=== PATIENT | male | born 1995 | race African-American/Black ===

== ENCOUNTER 2016-11-25 12:07 | Emergency (ER) | payer SELFPAY ==
[~2016-11-25] VITALS: Ht 180.3 cm; Wt 63.0 kg
[2016-11-25 12:08] VITALS: BP 129/67; PULSE 108; RESP 20; TEMP 100; O2SAT 99
--- NOTE | 2016-11-25 12:25 | PD ---
Physical Exam Time Seen by Provider: 12:22 Narrative 21 y/o male here with sore throat, diarrhea and lower abdominal pain for 3 days. Vital signs reviewed. Seen at triage desk. Awaiting bed placement. Data Data Last Documented VS Vital Signs Date Time Temp Pulse Resp B/P Pulse Ox O2 Delivery O2 Flow Rate FiO2 11/25/16 12:08 100.0 108 20 129/67 99 Room Air [facility] Medical Record Reviewed: Yes Supervised Visit with JOSE: Rodrick Landrum Nov 25, 2016 12:25
--- NOTE | 2016-11-25 13:58 | PD ---
HPI Chief Complaint: Abdominal Pain Time Seen by Provider: 13:55 Travel History International Travel<30 days: No Contact w/Intl Traveler<30days: No Traveled to known affect area: No History of Present Illness HPI 21-year-old male presents to the emergency department for evaluation of sore throat, diarrhea, intermittent diffuse abdominal pain that started 2 days ago. He states he feels like he has "cold in my throat". Patient is unsure if he has run fevers. He has a low-grade fever here and is 100.0. Patient denies any chest pain or short of breath. No cough or congestion. Patient denies any nausea or vomiting. He states he has significant sore throat pain with eating and drinking, but has been able to eat and drink. Patient states that he has intermittent abdominal pain that comes and goes. He states that he has mild pain at this time. He reports no significant medical problems and takes no prescribed medications. He last took Tylenol this morning at 8 AM. [facility] Social History Alcohol Use: No Tobacco Use: Yes Substance Use: No Allergies-Medications (Allergen,Severity, Reaction): Coded Allergies: No Known Allergies (Unverified , 11/25/16) Reported Meds & Prescriptions Reported Meds & Active Scripts Active No Active Prescriptions or Reported Medications Review of Systems Except as stated in HPI: all other systems reviewed are Neg Physical Exam Narrative GENERAL: Well-nourished, well-developed male patient, ambulatory. Temp is 100.0. SKIN: Focused skin assessment warm/dry. HEAD: Normocephalic. Atraumatic. ENT: Mucosa pink and moist. Bilateral tonsils are erythematous, 2+ with exudates. No uvular edema. No uvular, palatal, or tonsillar deviation. Airway patent. Nasal turbinates appear normal without nasal blood, purulent drainage or septal hematoma. Bilateral tympanic membranes are clear without erythema or perforation. EYES: No scleral icterus. No injection or drainage. NECK: Supple, trachea midline. No JVD or lymphadenopathy. CARDIOVASCULAR: Regular rate and rhythm without murmurs, gallops, or rubs. RESPIRATORY: Breath sounds equal bilaterally. No accessory muscle use. Lungs sounds are clear to auscultation. GASTROINTESTINAL: Abdomen soft, non-tender, nondistended. MUSCULOSKELETAL: No cyanosis, or edema. BACK: Nontender without obvious deformity. No CVA tenderness. Data Data Last Documented VS Vital Signs Date Time Temp Pulse Resp B/P Pulse Ox O2 Delivery O2 Flow Rate FiO2 11/25/16 12:08 100.0 108 20 129/67 99 Room Air Orders Group A Rapid Strep Screen (11/25/16 13:54) Acetaminophen (Tylenol) (11/25/16 14:00) Strep Culture (Group A) (11/25/16 13:25) Complete Blood Count With Diff (11/25/16 14:42) Lipase (11/25/16 14:42) Comprehensive Metabolic Panel (11/25/16 14:42) Sodium Chlor 0.9% 1000 Ml Inj (Ns 1000 M (11/25/16 14:45) Monoscreen (11/25/16 14:42) Dexamethasone Inj (Decadron Inj) (11/25/16 16:30) Labs Laboratory Tests Test 11/25/16 15:00 White Blood Count 11.2 TH/MM3 Red Blood Count 5.41 MIL/MM3 Hemoglobin 13.9 GM/DL Hematocrit 41.5 % Mean Corpuscular Volume 76.7 FL Mean Corpuscular Hemoglobin 25.7 PG Mean Corpuscular Hemoglobin 33.5 % Concent Red Cell Distribution Width 13.8 % Platelet Count 202 TH/MM3 Mean Platelet Volume 8.0 FL Neutrophils (%) (Auto) 76.0 % Lymphocytes (%) (Auto) 9.7 % Monocytes (%) (Auto) 14.1 % Eosinophils (%) (Auto) 0.0 % Basophils (%) (Auto) 0.2 % Neutrophils # (Auto) 8.5 TH/MM3 Lymphocytes # (Auto) 1.1 TH/MM3 Monocytes # (Auto) 1.6 TH/MM3 Eosinophils # (Auto) 0.0 TH/MM3 Basophils # (Auto) 0.0 TH/MM3 CBC Comment DIFF FINAL Differential Comment Sodium Level 135 MEQ/L Potassium Level 3.7 MEQ/L Chloride Level 99 MEQ/L Carbon Dioxide Level 25.8 MEQ/L Anion Gap 10 MEQ/L Blood Urea Nitrogen 12 MG/DL Creatinine 1.05 MG/DL Estimat Glomerular Filtration 107 ML/MIN Rate Random Glucose 89 MG/DL Calcium Level 9.0 MG/DL Total Bilirubin 1.2 MG/DL Aspartate Amino Transf 15 U/L (AST/SGOT) Alanine Aminotransferase 20 U/L (ALT/SGPT) Alkaline Phosphatase 81 U/L Total Protein 8.2 GM/DL Albumin 3.7 GM/DL Lipase 71 U/L Monoscreen NEG MDM Medical Decision Making Medical Screen Exam Complete: Yes Emergency Medical Condition: Yes Medical Record Reviewed: Yes Differential Diagnosis Strep pharyngitis versus viral pharyngitis versus mononucleosis versus viral syndrome Narrative Course 21-year-old male presents to the emergency department for evaluation of sore throat, diffuse intermittent abdominal pain, diarrhea. Physical exam does reveal bilateral tonsils are erythematous without exudates. Strep swab is ordered and pending. Patient is given Tylenol 650 by mouth. Strep is negative. CBC, CMP, mono screen, lipase are ordered and pending. CBC shows leukocytosis 11.2. CMP shows no acute process. Lipase is 71. [place] screen is negative. Symptoms and physical are consistent with strep pharyngitis. Patient is given Decadron 8 mg IV for symptomatic relief. Patient will be discharged a prescription for pen VK. Patient verbalizes agreement and understanding. He is instructed to return for any acute worsening of symptoms including worsening abdominal pain. The patient was discharged in stable condition with instructions, including return instructions and follow up instructions. Diagnosis Primary Impression: Exudative pharyngitis Referrals: Primary Care Physician call for appointment Patient Instructions: General Instructions, Pharyngitis (ED) Departure Forms: Tests/Procedures, Work Release Enter return to work date: Nov 28, 2016 Additional Instructions: [id number] Tylenol every 4 hours as needed for fever/pain. Over-the- counter ibuprofen every 6-8 hours as needed for fever/pain. Take antibiotic as directed until gone. This is free at [facility]. [facility]. Follow-up with your primary care physician. Return to the emergency department for any acute worsening of symptoms. Med/Other Pt SpecificInfo: Prescription(s) given Scripts Penicillin V Potassium 500 Mg [id number] Mg PO Q8H 10 Days Ref 0 Prov:Joan Olivarez 11/25/16 Disposition: 01 DISCHARGE HOME Condition: Stable Joan Olivarez Nov 25, 2016 13:58
[2016-11-25] MEDS ORDERED: ACETAMINOPHEN 325 MG TAB PO ONE (14:00)
[2016-11-25] MEDS ORDERED: SODIUM CHLOR 0.9% 1000 ML INJ 1,000 ML IV ONE (14:45)
[2016-11-25 15:49] LABS: AUTOMATED NEUTROPHIL # 8.5 TH/MM3 (1.8-7.7); BASOPHIL % 0.2 % (0.0-2.0); HEMATOCRIT 41.5 % (39.0-51.0); HEMO FLAGS DIFF FINAL; LYMPH % 9.7 % (9.0-44.0); LYMPHOCYTE # 1.1 TH/MM3 (1.0-4.8); MEAN CELL VOLUME 76.7 FL (80.0-100.0); MEAN CORPUSCULAR HEMOGLOBIN 25.7 PG (27.0-34.0); MEAN CORPUSCULAR HGB CONC 33.5 % (32.0-36.0); MONO % 14.1 % (0.0-8.0); PLATELET COUNT 202 TH/MM3 (150-450); RED BLOOD COUNT 5.41 MIL/MM3 (4.50-5.90); RED CELL DISTRIBUTION WIDTH 13.8 % (11.6-17.2); WHITE BLOOD COUNT 11.2 TH/MM3 (4.0-11.0)
[2016-11-25 16:00] LABS: ALT (GPT) 20 U/L (12-78); ANION GAP 10 MEQ/L (5-15); AST (GOT) 15 U/L (15-37); BICARBONATE 25.8 MEQ/L (21.0-32.0); BLOOD UREA NITROGEN 12 MG/DL (7-18); CHLORIDE 99 MEQ/L (98-107); GLOMERULAR FILTRATION RATE 107 ML/MIN (>89); POTASSIUM 3.7 MEQ/L (3.5-5.1); SODIUM (NA) 135 MEQ/L (136-145)
[2016-11-25 16:02] LABS: ALKALINE PHOSPHATASE 81 U/L (45-117); TOTAL BILIRUBIN ADULT 1.2 MG/DL (0.2-1.0)
[2016-11-25] MEDS ORDERED: DEXAMETHASONE SOD PHOS 4 MG/ML VIAL IV PUSH ONE (16:30)
[2016-11-25] MEDS ORDERED: PENI500T PO (16:34)
[2016-11-25 16:40] VITALS: BP 121/69; PULSE 95; RESP 18; O2SAT 98
== END 2016-11-25 16:51 | disposition home or self-care (01) ==
LOC: NEPD 12:07
DX: J02.9 Acute pharyngitis, unspecified (principal)
CPT/HCPCS: 80053; 83690; 85025; 86308; 87081; 87880; 96361; 96374; 99284; J1100; J7030